=== PATIENT | female | born 1970 ===

== ENCOUNTER 2024-02-28 07:43 | Outpatient (CLI) | payer OTHER | END 2024-02-28 07:50 | disposition home or self-care (01) | LOC: MAMO-SONO 07:43 | DX: Z12.31 Encounter for screening mammogram for malignant neoplasm of breast (principal); N92.2 Excessive menstruation at puberty ==

== ENCOUNTER 2024-06-15 07:40 | Outpatient (CLI) | payer OTHER | END 2024-06-15 07:43 | disposition home or self-care (01) | LOC: SONOGRAMA 07:40 | PROVIDERS: ATTEND Internal Medicine Gastroenterology | DX: R10.13 Epigastric pain (principal); K30 Functional dyspepsia; R14.0 Abdominal distension (gaseous); R14.2 Eructation ==